=== PATIENT | female | born 1970 ===

== ENCOUNTER 2017-08-06 07:12 | Emergency (ER) | payer BC ==
[2017-08-06 07:35] VITALS: BP 107/68
--- NOTE | 2017-08-06 08:11 | UC ---
Complaint Female HPI - HPI Summary HPI Summary: c/o frequency and dysuria for the past 2 days, denies flank pain or fever. States that it started with menses LMD 08-01-17. History of pyelonephritis in the past, denies urolithiasis. - History Of Current Complaint Chief Complaint: UCGU Stated Complaint: URINARY ISSUE Time Seen by Provider: 08/06/17 07:20 Hx Obtained From: Patient Hx Last Menstrual Period: 08/01/17 ?: No Onset/Duration: Sudden Onset, Lasting Days Timing: Constant Severity Initially: Mild Severity Currently: Moderate Pain Intensity: 5 Character: Burning Aggravating Factor(s): Urination Associated Signs And Symptoms: Positive: Negative - Allergies/Home Medications Allergies/Adverse Reactions: Allergies Allergy/AdvReac Type Severity Reaction Status Date / Time MS Penicillins [Penicillins] Allergy Severe rash/swelli Verified 08/06/17 07:23 ng MS Phenobarbital Allergy TACHY, N/T Verified 08/06/17 07:23 [Phenobarbital] PMH/Surg Hx/FS Hx/Imm Hx Previously Healthy: Yes - Surgical History Surgical History: Yes Surgery Procedure, Year, and Place: 2010, LAPAROSCOPY, [facility] [place] [facility] [place] - Social History Alcohol Use: None Substance Use Type: None Smoking Status (MU): Never Smoked Tobacco Review of Systems Genitourinary: Dysuria, Frequency, Urgency All Other Systems Reviewed And Are Negative: Yes Physical Exam Triage Information Reviewed: Yes Appearance: Well-Appearing Vital Signs: Initial Vital Signs Temp 97.8 F 08/06/17 07:25 Pulse 77 08/06/17 07:25 Resp 16 08/06/17 07:25 BP 107/68 08/06/17 07:25 Pulse Ox 100 08/06/17 07:25 Vital Signs Reviewed: Yes Eye Exam: Normal ENT Exam: Normal Dental Exam: Normal Neck exam: Normal Respiratory Exam: Normal Cardiovascular Exam: Normal Abdominal Exam: Normal Bowel Sounds: Positive: Present Neurological Exam: Normal Complaint Female Dx - Course Course Of Treatment: start antibiotic course until completion, oral hydration, probiotics - Differential Dx/Diagnosis Provider Diagnoses: UTI uncomplicated Discharge - Discharge Plan Condition: Stable Disposition: HOME Prescriptions: Nitrofurantoin Macrocrystals* [Macrodantin*] 100 mg PO BID 7 Days #14 cap Patient Education Materials: Urinary Tract Infection in Women (ED) Referrals: Foster John MD [Primary Care Provider] -
== END 2017-08-06 08:10 | disposition home or self-care (01) ==
LOC: UCEAST 07:12
DX: N39.0 Urinary tract infection, site not specified (principal); B96.20 Unspecified Escherichia coli [E. coli] as the cause of diseases classified elsewhere; Z87.448 Personal history of other diseases of urinary system
CPT/HCPCS: 81003; 87077; 87086; 87186; 99212; G0463